=== PATIENT | female | born 1935 | race Caucasian/White ===

== ENCOUNTER → 2017-08-22 | Outpatient (CLI) | payer MEDICARE ==
--- NOTE | 2017-08-22 10:34 | RADIOLOGY REPORT (SQ) ---
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 TECHNIQUE: CT scan performed of the chest without intravenous contrast. Images reviewed with lung, soft tissue and bone windows. Reconstructed coronal and sagittal MPR images reviewed. All images st ored on PACS. All CT scanners at this facility use dose modulation, iterative reconstruction, and/or weight based d osing when appropriate to reduce radiation dose to as low as reasonably achievable (ALARA). [facility]: Dose Right [facility]: CareDose [facility]: Dose Right [facility]: Teradose 4D [facility]: [employer] RADIATION DOSE: CT Rad equipment meets quality standard of care and radiation dose reduction techniq ues were employed. CTDIvol: 8.1 mGy. DLP: 312 mGy-cm. mGy. LIMITATIONS: No technical limitations. FINDINGS: LUNGS AND PLEURA: Faintly defined ground-glass opacification is present in the upper lobes , left more than right. There is mild septal thickening in the left upper lobe. There is nodular op acification adjacent to the major fissure in right middle lobe anteriorly and inferiorly. This is 8 mm in size. HILAR AND MEDIASTINAL STRUCTURES: No identified masses or abnormal nodes. No obvious aneurysm. HEART AND VASCULAR STRUCTURES: No aneurysm. No pericardial effusion. UPPER ABDOMEN: No significant findings. Limited exam. THYROID AND OTHER SOFT TISSUES: No masses. No adenopathy. BONES: No significant finding. HARDWARE: None in the chest. OTHER: No other significant findings. IMPRESSION: 1. Mild chronic interstitial changes present in the upper lobes, left more than right. 2. There is an 8 mm right middle lobe nodule anteriorly. Follow-up as below. COMMENT: [place] CRITERIA FOR FOLLOW-UP OF PULMONARY NODULES Incidentally detected new nodules in persons 35 or older. HIGH RISK: History of smoking or other known risk factors. 6-8mm single solid nodule: LOW RISK: CT 6-12 mo; then consider CT 18-24 mo. HIGH RISK: CT 6-12 mo; th en CT 18-24 mo. TECHNICAL DOCUMENTATION: JOB ID: [id number] Quality ID # [id number]: Final reports with documentation of one or more dose reduction techniques (e.g., Au tomated exposure control, adjustment of the mA and/or kV according to patient size, use of iterative reconstruction technique) 2010 [employer]- All Rights Reserved Reading location - IP/workstation name: [email or web address]
== END ==
LOC: RAD 09:10
PROVIDERS: ATTEND Physician Assistant
DX: J84.9 Interstitial pulmonary disease, unspecified (principal)
CPT/HCPCS: 71250

== ENCOUNTER → 2017-08-27 | Outpatient (CLI) | payer MEDICARE ==
--- NOTE | 2017-08-27 09:15 | ST Modified Barium Swallow ---
Recommendation - Recommendations Recommendations: Recommend alternating bites and sips to prevent residue. No other recommendations, functional swallow for all trial textures seen. Medical Diagnoses - Medical Diagnoses Medical Diagnosis Description & ICD-10 Code(s): dysphagia R13.10 Other Medical Diagnoses/Co-Morbidities: per patient report: Reflux, COPD, macular degeneration, left breast cancer status post 4 years with chemotherapy. - ICD-10 Tx Diagnosis Coding (1) Acid reflux ICD-10 Code(s): K21.9 - GASTRO-ESOPHAGEAL REFLUX DISEASE WITHOUT ESOPHAGITIS ST Modified Barium Swallow - General Date: 08/27/17 Referring Physician: ASIM Bird Risks/Precautions: None Reason for Referral: globus sensation - History History obtained from: Patient -: Medical - Patient arrived with home portable oxygen, on 3 liters. She reports some globus sensation with solids for approximately 1 year, states that at times she has to "spit foods up and start over". Does not report difficulty with liquids of soft foods. 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 She reports no recent pneumonia, no history of CVA, and no surgeries involving the head, neck or shoulders. She does report a frequent cough, but states it does not get worse when eating or drinking. Medications: Unable to give full medication list, does report taking a reflux medication and nebulizer. Allergies: nka - Functional Status Prior Functional Status: INDEPENDENT: feeding - independent Current Functional Limitations: feeding - independent with globus sensation - Subjective Patient/caregiver goal(s): safe swallow Cognitive-Linguistic Function: WNL Speech Intelligibility: WNL Current Nutritional Means: PO Current PO diet: Regular Current symptoms: Coughing, c/o Globus sensation Pain: Patient reports, 0/5 - Objective Assessment: Upright, Left Lateral - Food Trials Used Food trials used: Thin liquids, Pureed, Regular The patient: Was Able to Self Feed - Oral-Motor Skills Dentition: Full - Assessment Oral prep: Normal Labial closure: Adequate Leakage: None Mastication: Adequate Lingual Movement: Normal Oral stage: Normal for this Procedure - Pharyngeal Stage Initiation of Pharyngeal Stage Reflex: Normal Decreased laryngeal elevation: No Reduced Velopharyngeal Closure: no Reduced pressure generation: No reduced tongue-based retraction: No Pre-swallow pooling in valleculae: None Pre-Swallow pooling in pyriforms: None Reduced Thyro-Hyoid approximation: No Reduced epiglottic excursion: No Reduced pharyngeal peristalsis/contraction: No Multiple Swallows with: Cleared w/ Liquid Assist Post-swallow residulas vallecular: None Post-Swallow residuals in pyriforms: Mild - Esophageal Stage Esophageal Stage: mild residue of regular solid material in upper esophagus, cleared with liquid wash - Fall Risk Assessment Medications/Conditions that increase fall risks include: Antidepressants, sedatives, anti-arrhythmic, diuretic, benzodiazipenes, neuroleptics. BP regulation problems, cardiac problems, balance or gait deficits, neurological problems. Fall Risk Actions Taken: No action needed - Behavioral Observations During evaluation process patient: was pleasant, was cooperative, able to answer questions, provided medical history - Treatment / Educational Needs: Treatment/Education Needs: Treatment consisted of patient education on the role of the Speech Pathologist. Patient's plan of care and golas were communicated as well as scheduling and attendance policies. Recommendations for initial home program were shared. Patient demonstrated understanding and verbalized agreement. - Impression/Summary Laryngeal Penetration: Yes, Flash, during swallow Consistency: Thin Tracheal Aspiration: no Compesatory strategies: alternate bites and sips Risk of Aspiration: Minimal Evaluation and Findings: Swallow skills within functional limits. Flash penetration of thin liquids seen, consistently redirected away from airway. Mild residue in pyriform sinus/upper esophagus, cleared with liquid wash. - Recommendations Solid diet recommendations: Regular Liquid Diet Modification: Thin Dysphagia therapy with APPRENTICESHIP CONSULTANT: no Reflux Precautions: Taught to Patient Recommended techniques: Fully Upright During Meal, Small Bites and Sips, Alternate Bites/Sips Information, Precautions and Recommendations: Patient (Written), Patient (Verbal ) - Time Total Time: 20 - Plan of Care Strategies to optimize patient understanding include:: ongoing assessment of educational needs, implementation of educational strategies, and re-education. - - -: Thank you for the opportunity to work with this patient and his/her family. Should you have any questions about this patient's plan or progress, I can be reached at [phone]. Charge G Code? - - -: Yes ST F.L. Impairment Category - Rationale Based On Rationale Based On: Func. Asses. Tool Results - Swallowing Current G8996: CI 1-19% Impaired Goal G8997: CI 1-19% Impaired Discharge G8998: CI 1-19% Impaired
--- NOTE | 2017-08-27 12:33 | RADIOLOGY REPORT (SQ) ---
EXAM DESCRIPTION: CATHY SWALLOW COMPLETED DATE/TIME: 08/27/2017 8:25 am REASON FOR STUDY: DYSPHAGIA (R13.10) R13.10 DYSPHAGIA, UNSPECIFIED COMPARISON: None. TECHNIQUE: Videofluoroscopic swallowing examination was performed in conjunction with speech patholo gy. Videofluoroscopic imaging was obtained and reviewed and these are the findings: RADIATION DOSE: 2 minutes, 2 seconds of fluoroscopy was used 1 images saved to PACS. LIMITATIONS: None FINDINGS: The patient was brought into the fluoro room and placed upright on a modified barium swall ow chair. The patient was then given multiple consistencies mixed with barium to swallow under live fluoroscopic video guidance. According to the Speech Pathologist there was trace penetration with th in liquid. No aspiration. IMPRESSION: TRACE PENETRATION WITHOUT ASPIRATION.PLEASE SEE SPEECH PATHOLOGIST REPORT FOR OTHER FIND INGS AND RECOMMENDATIONS. COMMENT: Quality ID 145: Final reports for procedures using fluoroscopy that document radiation exp osure indices, or exposure time and number of fluorographic images (if radiation exposure indices are not available) TECHNICAL DOCUMENTATION: JOB ID: [id number] [email or web address]- All Rights Reserved Reading location - IP/workstation name: [email or web address] [id number]
== END ==
LOC: RAD 07:29
PROVIDERS: ATTEND Physician Assistant
DX: R13.10 Dysphagia, unspecified (principal)
CPT/HCPCS: 74230; 92611; G8996; G8997; G8998

== ENCOUNTER → 2017-10-21 | Outpatient (CLI) | payer MEDICARE, OTHER ==
--- NOTE | 2017-10-21 14:16 | XCELERA REPORT ---
[address] [address] Transthoracic Echocardiogram Report Name: SHABBIR BOWSER Age: 82 yrs Gender: Female : 1935 Patient Status: Outpatient Patient Location: Study Date: 10/21/2017 11:07 AM Procedure: A two-dimensional transthoracic echocardiogram with color flow and Doppler was performed. The study was technically limited with all images being suboptimal in quality. The study was technically difficult with many images being suboptimal in quality. Study Quality: Technically suboptimal. Reason For Study: DYSPNEA History: DYSPNEA. Ordering Physician: WALLY BRYANT Performed By: Grant Gutierrez Interpretation Summary The left ventricle is normal in size. There is normal left ventricular wall thickness. Doppler measurements suggest impaired left ventricular relaxation, which is associated with grade I/IV or mild diastolic dysfunction LV EF is > than 60% No True 2 chamber apical views obtained.Hence cannot comment on the apical and basal anterior meadows, and the apical and basal inferior meadows.The mid anterior and the mid inferior and the rest of the meadows contract normally. The right ventricle is grossly normal size. The left atrial size is normal. There is no evidence of mitral valve prolapse. There is no mitral regurgitation noted. There is no mitral valve stenosis. The aortic valve is mildly calcified There is no aortic valve stenosis There is no LVOT obstruction. No aortic regurgitation is present. There is a trace to mild amount of tricuspid regurgitation There is no tricuspid stenosis. There is mild pulmonary hypertension by echo RVSP is 32 to 37 mm of Hg , with RA mean of 5 to 10. There is no pericardial effusion. MMode/2D Measurements & Calculations RVDd: 2.2 cm LVIDd: 3.5 cm FS: 34.0 % Ao root diam: 1.9 cm IVSd: 1.1 cm LVIDs: 2.3 cm EDV(Teich): 52.3 ml Ao root area: 2.7 cm2 LVPWd: 1.1 cm ESV(Teich): 18.9 ml LA dimension: 3.0 cm EF(Teich): 64.0 % LVOT diam: 1.7 cm LVOT area: 2.4 cm2 Doppler Measurements & Calculations MV E max isaias: MV P1/2t max isaias: Ao V2 max: LV V1 max P.3 cm/sec 61.1 cm/sec 92.1 cm/sec 1.6 mmHg MV A max isaias: MV P1/2t: 66.0 msec Ao max PG: LV V1 max: 74.0 cm/sec 3.4 mmHg 62.7 cm/sec MV E/A: 0.72 MVA(P1/2t): 3.3 cm2 MV dec slope: VALORIE(V,D): 1.6 cm2 271.0 cm/sec2 MV dec time: 0.19 sec TV V2 max: PA V2 max: 259.3 cm/sec 107.4 cm/sec TV max PG: PA max P.6 mmHg 26.9 mmHg Left Ventricle The left ventricle is normal in size. There is normal left ventricular wall thickness. LV EF is > than 60%. Doppler measurements suggest impaired left ventricular relaxation, which is associated with grade I/IV or mild diastolic dysfunction. No True 2 chamber apical views obtained.Hence cannot comment on the apical and basal anterior meadows, and the apical and basal inferior meadows.The mid anterior and the mid inferior and the rest of the meadows contract normally. There is no thrombus. Right Ventricle The right ventricle is grossly normal size. The right ventricle is not well visualized secondary to technical limitations. Atria The right atrium is normal. The left atrial size is normal. Mitral Valve There is mild mitral annular calcification. There is no evidence of mitral valve prolapse. There is no vegetation seen on the mitral valve. There is no mitral valve stenosis. There is no mitral regurgitation noted. Aortic Valve The aortic valve is mildly calcified. There is no aortic valvular vegetation. There is no aortic valve stenosis. There is no LVOT obstruction. No aortic regurgitation is present. Tricuspid Valve There is no tricuspid stenosis. There is a trace to mild amount of tricuspid regurgitation. There is mild pulmonary hypertension by echo. RVSP is 32 to 37 mm of Hg , with RA mean of 5 to 10. Pulmonic Valve There is no pulmonic valvular stenosis. There is no pulmonic valvular regurgitation. Great Vessels The aortic root is not well visualized but is probably normal size. Effusions There is no pericardial effusion. : WALLY BRYANT > Carmela Hill
== END ==
LOC: SP 10:41
PROVIDERS: ATTEND Physician Assistant
DX: R06.00 Dyspnea, unspecified (principal)
CPT/HCPCS: 93306

== ENCOUNTER → 2017-11-14 | Outpatient (CLI) | payer MEDICARE, OTHER ==
[2017-11-14 10:33] LABS: ARTERIAL BLOOD BASE EXCESS 4.4 mmol/L; ARTERIAL BLOOD H2CO3 1.48 mmol/L (1.05-1.35); ARTERIAL BLOOD HCO3 30.1 mmol/L (20-26); ARTERIAL BLOOD O2 SATURATION 96.7 % (94-98); ARTERIAL BLOOD PCO2 49.3 mmHg (35-45); ARTERIAL BLOOD PO2 88.3 mmHg (80-100); ARTERIAL BLOOD TOTAL CO2 31.6 mmol/L (21-25)
[2017-11-14 10:34] LABS: ARTERIAL BLOOD FIO2 2L
[2017-11-14 10:48] LABS: ABSOLUTE EOSINOPHILS # (AUTO) 0.1 10^3/uL (0.0-0.6); ABSOLUTE LYMPHOCYTES (AUTO) 1.6 10^3/uL (0.5-4.7); ABSOLUTE MONOCYTES (AUTO) 0.6 10^3/uL (0.1-1.4); ABSOLUTE NEUT (AUTO) 6.1 10^3/uL (1.7-8.2); BASOPHILS % (AUTO) 0.3 % (0-2); EOSINOPHILS % (AUTO) 1.7 % (0-6); HEMATOCRIT 41.3 % (36.0-47.0); HEMOGLOBIN 13.6 g/dL (12.0-15.5); LYMPHOCYTES % (AUTO) 19.2 % (13-45); MEAN CORPUSCULAR HEMOGLOBIN 29.4 pg (27.0-33.4); MEAN CORPUSCULAR HGB CONC 32.9 g/dL (32.0-36.0); MEAN CORPUSCULAR VOLUME 89 fl (80-97); MONOCYTES % (AUTO) 7.5 % (3-13); PLATELET COUNT 195 10^3/uL (150-450); RED BLOOD COUNT 4.63 10^6/uL (3.72-5.28); RED CELL DISTRIBUTION WIDTH 15.1 % (11.5-14.0); SEGMENTED NEUTROPHILS % (AUTO) 71.3 % (42-78); TOTAL CELLS COUNTED % (AUTO) 100 %; WHITE BLOOD COUNT 8.6 10^3/uL (4.0-10.5)
[2017-11-15 12:40] LABS: ANTICHROMATIN AB <0.2 AI (0.0-0.9); CENTROMERE B AB <0.2 AI (0.0-0.9); JO-1 ANTIBODY (ANACOMP) <0.2 AI (0.0-0.9); RNP AB <0.2 AI (0.0-0.9); SCLERODERMA-70 ANTIBODIES <0.2 AI (0.0-0.9); SJOGREN'S ANTI-SS-B AB <0.2 AI (0.0-0.9); SJOGREN'S SS-A ANTIBODY <0.2 AI (0.0-0.9); SMITH AB ANA <0.2 AI (0.0-0.9)
[2017-11-15 16:42] LABS: DNA DOUBLE STRAND ANTIBODY ANA <1 IU/mL (0-9)
[2017-11-15 18:35] LABS: CYTOPLASMIC (C-ANCA) <1:20 titer (Neg:<1:20)
[2017-11-16 10:17] LABS: ATYPICAL PANCA <1:20 titer (Neg:<1:20); PERINUCLEAR (P-ANCA) <1:20 titer (Neg:<1:20)
[2017-11-17 09:37] LABS: M001-IGE PENICILLIUM CHRYSOGEN <0.10 kU/L (Class 0); M002-IGE CLADOSPORIUM HERBARUM <0.10 kU/L (Class 0); M003-IGE ASPERGILLUS FUMIGATUS <0.10 kU/L (Class 0); M004-IGE MUCOR RACEMOSUS <0.10 kU/L (Class 0); M005-IGE CANDIDA ALBICANS <0.10 kU/L (Class 0); M006-IGE ALTERNARIA ALTERNATA <0.10 kU/L (Class 0); M009-IGE FUSARIUM PROLIFERATUM <0.10 kU/L (Class 0); M012-IGE AUREOBASIDI PULLULANS <0.10 kU/L (Class 0); M013-IGE PHOMA BETAE <0.10 kU/L (Class 0); M014-IGE EPICOCCUM PURPURASCEN <0.10 kU/L (Class 0)
[2017-11-17 13:26] LABS: M010-IGE STEMPHYLIUM HERBARUM <0.10 kU/L (Class 0)
== END ==
LOC: LAB 10:07
PROVIDERS: ATTEND Physician Assistant
DX: J44.9 Chronic obstructive pulmonary disease, unspecified (principal); J84.9 Interstitial pulmonary disease, unspecified; J30.9 Allergic rhinitis, unspecified; R05 Cough; R84.5 Abnormal microbiological findings in specimens from respiratory organs and thorax
CPT/HCPCS: 36415; 36600; 82785; 82803; 85025; 86003; 86021; 86225; 86235; 86430; 87070; 87077; 87186; 87205

== ENCOUNTER → 2017-11-14 | Outpatient (CLI) | payer MEDICARE, OTHER ==
--- NOTE | 2017-11-14 11:04 | RADIOLOGY REPORT (SQ) ---
EXAM DESCRIPTION: CHEST 2 VIEWS COMPLETED DATE/TIME: 11/14/2017 10:50 am REASON FOR STUDY: COUGH COMPARISON: None. EXAM PARAMETERS: NUMBER OF VIEWS: two views TECHNIQUE: Digital Frontal and Lateral radiographic views of the chest acquired. RADIATION DOSE: NA LIMITATIONS: none FINDINGS: LUNGS AND PLEURA: No opacities, masses or pneumothorax. No pleural effusion. Chronic appe aring changes are identified. I cannot exclude a component of obstructive lung disease P MEDIASTINUM AND HILAR STRUCTURES: No masses or contour abnormalities. HEART AND VASCULAR STRUCTURES: Heart normal size. No evidence for failure. BONES: No acute findings. HARDWARE: Right shoulder prosthesis is identified. Surgical clips are identified in the left axillar y region. OTHER: Patient is status post left mastectomy IMPRESSION: NO ACUTE RADIOGRAPHIC FINDING IN THE CHEST. TECHNICAL DOCUMENTATION: JOB ID: [id number] [employer]- All Rights Reserved Reading location - IP/workstation name: [email or web address]
== END ==
LOC: RAD 10:37
PROVIDERS: ATTEND Physician Assistant
DX: R05 Cough (principal)
CPT/HCPCS: 71046

== ENCOUNTER → 2018-02-24 | Outpatient (CLI) | payer MEDICARE, OTHER ==
--- NOTE | 2018-02-24 14:29 | RADIOLOGY REPORT (SQ) ---
EXAM DESCRIPTION: CT CHEST WITHOUT COMPLETED DATE/TIME: 02/24/2018 9:18 am REASON FOR STUDY: SOLITARY PULMONARY NODULE R91.1 SOLITARY PULMONARY NODULE COMPARISON: 08/22/2017 TECHNIQUE: CT scan performed of the chest without intravenous contrast. Images reviewed with lung, soft tissue and bone windows. Reconstructed coronal and sagittal MPR images reviewed. All images st ored on PACS. All CT scanners at this facility use dose modulation, iterative reconstruction, and/or weight based d osing when appropriate to reduce radiation dose to as low as reasonably achievable (ALARA). [facility]: Dose Right [facility]: CareDose [facility]: Dose Right [facility]: Teradose 4D [facility]: [employer] RADIATION DOSE: CT Rad equipment meets quality standard of care and radiation dose reduction techniq ues were employed. CTDIvol: 6.5 mGy. DLP: 262 mGy-cm. mGy. LIMITATIONS: No technical limitations. FINDINGS: LUNGS AND PLEURA: There are bilateral emphysematous changes were subpleural fibrosis and s carring in both upper lobes which is relatively stable. No suspicious pulmonary nodules. The right middle lobe nodule previously described appears to represent scar formation. No effusions. No conso lidation. HILAR AND MEDIASTINAL STRUCTURES: No identified masses or abnormal nodes. No obvious aneurysm. HEART AND VASCULAR STRUCTURES: No aneurysm. No pericardial effusion. UPPER ABDOMEN: No significant findings. Limited exam. THYROID AND OTHER SOFT TISSUES: No masses. No adenopathy. BONES: There is slight compression of the inferior endplate at L2. This is new from prior study. HARDWARE: None in the chest. OTHER: No other significant findings. IMPRESSION: 1. COPD. No suspicious pulmonary nodules. 2. Slight compression of the inferior endplate of L2. This is new from July 2017. TECHNICAL DOCUMENTATION: JOB ID: [id number] Quality ID # [id number]: Final reports with documentation of one or more dose reduction techniques (e.g., Au tomated exposure control, adjustment of the mA and/or kV according to patient size, use of iterative reconstruction technique) 2010 [employer]- All Rights Reserved Reading location - IP/workstation name: [email or web address]
== END ==
LOC: RAD 08:46
PROVIDERS: ATTEND Physician Assistant
DX: R91.1 Solitary pulmonary nodule (principal); J44.9 Chronic obstructive pulmonary disease, unspecified
CPT/HCPCS: 71250

== ENCOUNTER → 2019-03-02 | Outpatient (CLI) | payer MEDICARE, OTHER ==
--- NOTE | 2019-03-02 11:53 | RADIOLOGY REPORT (SQ) ---
EXAM DESCRIPTION: CT CHEST WITHOUT COMPLETED DATE/TIME: 03/02/2019 9:21 am REASON FOR STUDY: (J84.9)INTERSTITIAL PULMONARY DISEASE, UNSPECIFIED J84.9 INTERSTITIAL PULMONARY D ISEASE, UNSPECIFIED COMPARISON: 02/24/2018 TECHNIQUE: CT scan performed of the chest without intravenous contrast. Images reviewed with lung, soft tissue and bone windows. Reconstructed coronal and sagittal MPR images reviewed. All images st ored on PACS. All CT scanners at this facility use dose modulation, iterative reconstruction, and/or weight based d osing when appropriate to reduce radiation dose to as low as reasonably achievable (ALARA). [facility]: Dose Right [facility]: CareDose [facility]: Dose Right [facility]: Teradose 4D [facility]: [employer] RADIATION DOSE: CT Rad equipment meets quality standard of care and radiation dose reduction techniq ues were employed. CTDIvol: 5.8 mGy. DLP: 223 mGy-cm. mGy. LIMITATIONS: No technical limitations. FINDINGS: LUNGS AND PLEURA: Mild linear atelectasis in right middle lobe and in the lingula. Hypere xpansion of the lungs. No pulmonary mass or infiltrate. No significant pleural effusion. HILAR AND MEDIASTINAL STRUCTURES: No identified masses or abnormal nodes. No obvious aneurysm. HEART AND VASCULAR STRUCTURES: No aneurysm. No pericardial effusion. UPPER ABDOMEN: No significant findings. Limited exam. THYROID AND OTHER SOFT TISSUES: No masses. No adenopathy. BONES: No significant finding. HARDWARE: None in the chest. OTHER: No other significant findings. IMPRESSION: Mild linear atelectasis. Chronic lung changes. No acute cardiopulmonary findings. TECHNICAL DOCUMENTATION: JOB ID: [id number] Quality ID # [id number]: Final reports with documentation of one or more dose reduction techniques (e.g., Au tomated exposure control, adjustment of the mA and/or kV according to patient size, use of iterative reconstruction technique) 2010 [employer]- All Rights Reserved Reading location - IP/workstation name: [email or web address]
== END ==
LOC: RAD 08:44
PROVIDERS: ATTEND Internal Medicine Pulmonary Disease
DX: J84.9 Interstitial pulmonary disease, unspecified (principal)
CPT/HCPCS: 71250